=== PATIENT | female | born 1955 | race Two or more races ===

== ENCOUNTER 2016-07-30 14:53 | Emergency (ER) | payer MEDICAID ==
[~2016-07-30] VITALS: Ht 160 cm; Wt 56.2 kg
--- NOTE | 2016-07-30 15:38 | Emergency Room Report ---
History of Present Illness General Chief Complaint: Fever Source: Patient Present Illness HPI 60-year-old female presents to emergency Department complaining of intermittent productive cough, fever, chills, body aches, increased lethargy x2 days in addition to lower her abdominal pressure and frequency. Patient denies hematuria or dysuria. denies abdominal pain, constipation, diarrhea. Patient denies history of immunocompromise or other medical problems. Patient denies ill contacts or recent travel. She also reports nasal congestion and rhinorrhea. She denies taking flu vaccine. Denies CP, Palpitations, LOC, AMS, dizziness, Changes in Vision, Sensation, paresthesias, or a sudden severe headache. Allergies: Coded Allergies: No Known Allergies (Unverified , 06/06/15) Patient History Past Medical History: see triage record Past Surgical History: none Pertinent Family History: none Now: No Reviewed Nursing Documentation: PMH: Agreed, PSxH: Agreed Nursing Documentation-PM Past Medical History: No History, Except For Hx Hypertension: Yes Review of Systems All Other Systems: negative except mentioned in HPI Physical Exam Vital Signs Date Time Temp Pulse Resp B/P Pulse Ox O2 Delivery O2 Flow Rate FiO2 07/30/16 15:07 102.7 89 18 119/68 96 Room Air Sp02 EP Interpretation: reviewed, normal, abnormal - febrile at 102.7 General Appearance: no apparent distress, alert, GCS 15, non-toxic Head: normocephalic, atraumatic Eyes: bilateral eye PERRL, bilateral eye normal inspection ENT: hearing grossly normal, normal pharynx, no angioedema, normal voice Neck: full range of motion, supple/symm/no masses Respiratory: chest non-tender, lungs clear, normal breath sounds, no respiratory distress, no accessory muscle use, no wheezing, speaking full sentences Cardiovascular #1: regular rate, rhythm, no edema Gastrointestinal: normal bowel sounds, non tender, soft, no guarding, no rebound Rectal: deferred Genitourinary: normal inspection, no CVA tenderness Musculoskeletal: back normal, gait/station normal, normal range of motion, non- tender, no calf tenderness Neurologic: alert, oriented x3, responsive, motor strength/tone normal, sensory intact, speech normal Psychiatric: judgement/insight normal, memory normal, mood/affect normal, no suicidal/homicidal ideation Skin: normal color, no rash, warm/dry, well hydrated Lymphatic: no adenopathy Medical Decision Making PA Attestation Dr. Joy is my supervising Physician whom patient management has been discussed with. Diagnostic Impression: Primary Impression: Upper respiratory infection, viral Additional Impression: Viral syndrome ER Course 60-year-old female presents to emergency Department complaining of intermittent productive cough, fever, chills, body aches, increased lethargy x2 days in addition to lower her abdominal pressure and frequency. Patient denies hematuria or dysuria. Patient denies history of immunocompromise or other medical problems. Patient denies ill contacts or recent travel. She also reports nasal congestion and rhinorrhea. She denies taking flu vaccine. Denies CP, Palpitations, LOC, AMS, dizziness, Changes in Vision, Sensation, paresthesias, or a sudden severe headache. Ddx considered but are not limited to URI, pneumonia, PE, strep pharyngitis, meningitis, UTI Vital signs: Pt. is afebrile, the remaining VS are WNL H&PE are most consistent with URI- no meningeal signs, oropharynx is not involved, no evidence of bacterial infection at this time. ORDERS: -UA: WNL no evidence of infection -CXR: No consolidation, effusion, pneumothorax or acute cardiopulmonary findings per soft read in ED by Dr. Joy ED INTERVENTIONS: None required at this time. --PT. EDUCATION: Discussed antibiotic resistance with inappropriate prescribing of antibiotics for viral illnesses. Discussed signs and symptoms to indicate viral illness versus bacterial illness. DISCHARGE: At this time pt. is stable for d/c to home. Will provide printed patient care instructions, and any necessary prescriptions. Care plan and follow up instructions have been discussed with the patient prior to discharge. Labs Test 07/30/16 15:40 Urine Color Pale yellow Urine Appearance Clear Urine pH 6 (4.5-8.0) Urine Specific [place] 1.015 (1.005-1.035) Urine Protein Negative (NEGATIVE) Urine Glucose (UA) Negative (NEGATIVE) Urine Ketones Negative (NEGATIVE) Urine Occult Blood 2+ (NEGATIVE) Urine Nitrite Negative (NEGATIVE) Urine Bilirubin Negative (NEGATIVE) Urine Urobilinogen Normal MG/DL (0.0-1.0) Urine Leukocyte Esterase Negative (NEGATIVE) Urine RBC 2-4 /HPF (0 - 2) Urine WBC 0-2 /HPF (0 - 2) Urine Squamous Epithelial Cells Few /LPF (NONE/OCC) Urine Bacteria Few /HPF (NONE) Last Vital Signs Date Time Temp Pulse Resp B/P Pulse Ox O2 Delivery O2 Flow Rate FiO2 07/30/16 15:07 102.7 89 18 119/68 96 Room Air Disposition: HOME, SELF-CARE Condition: Stable Scripts Pseudoephedrine Hcl* (NEXAFED*) 30 Mg Tablet 30 MG ORAL Q6H Y for congestion, #20 TAB Prov: Denae Montes 07/30/16 Guaifenesin (Guaifenesin) 1,200 Mg Tab.er.12h 1200 MG PO BID, #20 TAB Prov: Denae MontesAMilly 07/30/16 Codeine/Promethazine Hcl* (PROMETHAZINE-CODEINE SYRUP*) 118 Ml Syrup 5 ML ORAL Q6H Y for For Cough, #118 ML 0 Refills Prov: Denae Montes 07/30/16 Acetaminophen* (TYLENOL EXTRA STRENGTH*) 500 Mg Tablet 500 MG ORAL Q6H Y for Mild Pain/Temp > 100.5, #30 TAB 0 Refills Prov: Denae Montes 07/30/16 Patient Instructions: Upper Respiratory Infection, Adult Additional Instructions: Take medications as directed. Follow up with PCP in 3-5 days Return sooner to ED if new symptoms occur, or current symptoms become worse. - Please note that this Emergency Department Report was dictated using [employer] technology software, occasionally this can lead to erroneous entry secondary to interpretation by the dictation equipment. Denae Montes Jul 30, 2016 15:38
[2016-07-30 15:55] LABS: APPEARANCE,URINE CLEAR; KETONES,URINE NEGATIVE (NEGATIVE); LEUKOCYTE ESTERASE ,URINE NEGATIVE (NEGATIVE); NITRITE,URINE NEGATIVE (NEGATIVE); PH,URINE 6 (4.5-8.0); PROTEIN,URINE NEGATIVE (NEGATIVE); UROBILINOGEN,URINE NORMAL MG/DL (0.0-1.0)
[2016-07-30 16:04] LABS: BACTERIA,URINE FEW /HPF; SQUAMOUS EPITHELIAL CELL,UR FEW /LPF (NONE/OCC); WBC,URINE 0-2 /HPF (0 - 2)
[2016-07-30] MEDS ORDERED: TYLENOL EXTRA500 MG ORAL (17:25)
[2016-07-30] MEDS ORDERED: NEXAFED30 MG ORAL (17:25)
[2016-07-30] MEDS ORDERED: PROMETHAZINE-C118 M1 ORAL (17:25)
[2016-07-30] MEDS ORDERED: GUAIFENESIN1200 MG PO (17:25)
[2016-07-30 18:03] VITALS: BP 121/64
--- NOTE | 2016-07-31 13:54 | Diagnostic Imaging Report ---
Indication: Cough Comparison: 06/06/15 A single view chest radiograph was obtained. Findings: Cardiomediastinal appearance is within normal limits for age. Pulmonary vascularity is appropriate. The diaphragmatic contour is smooth and costophrenic angles are sharp. No pleural effusions are identified. The bones are unremarkable. Impression: No acute findings
== END 2016-07-30 18:03 | disposition home or self-care (01) ==
LOC: EMR 15:56
DX: J06.9 Acute upper respiratory infection, unspecified (principal); B34.9 Viral infection, unspecified; I10 Essential (primary) hypertension
CPT/HCPCS: 71010; 81003; 99284

== ENCOUNTER 2017-05-30 13:51 | Emergency (ER) | payer MEDICAID ==
[~2017-05-30] VITALS: Ht 152.4 cm; Wt 57.6 kg
[~2017-05-30 13:51] MED LIST: GUAIFENESIN1200 MG PO; NEXAFED30 MG ORAL; PROMETHAZINE-C118 M1 ORAL; TYLENOL EXTRA500 MG ORAL
[2017-05-30] MEDS ORDERED: NKM (14:18)
[2017-05-30] MEDS ORDERED: BENADRYL25 M3 PO (14:43)
--- NOTE | 2017-05-30 14:47 | Emergency Room Report ---
History of Present Illness General Chief Complaint: Earache Source: Patient Present Illness HPI 61-year-old female, no significant past medical history, presenting with right ear itchiness and swelling. Son states that she ate a cake, about 10-15 minutes later, she felt that her right ear and right-sided face became very itchy swollen. States that it has decreased since coming to the emergency room. No shortness of breath no wheezing. No fever chills no discharge. No complaining of any pain to right ear at this time only slight itchiness Allergies: Coded Allergies: No Known Allergies (Unverified , 06/06/15) Patient History Past Medical History: see triage record Past Surgical History: none Pertinent Family History: none Reviewed Nursing Documentation: PMH: Agreed, PSxH: Agreed Nursing Documentation-PMH Hx Hypertension: Yes Review of Systems All Other Systems: negative except mentioned in HPI Physical Exam Vital Signs Date Time Temp Pulse Resp B/P (MAP) Pulse Ox O2 Delivery O2 Flow Rate FiO2 05/30/17 14:11 98.1 71 17 160/88 98 Room Air Sp02 EP Interpretation: reviewed, normal General Appearance: normal inspection, well appearing, no apparent distress, alert, GCS 15, non-toxic Head: normocephalic, atraumatic Eyes: bilateral eye normal inspection, bilateral eye PERRL, bilateral eye EOMI ENT: TMs + canals normal, other - R pinna with mild redness and edema. no inner ear abnormalities Neck: normal inspection, full range of motion, supple Respiratory: normal inspection, lungs clear, normal breath sounds, no respiratory distress, no retraction, no wheezing, speaking full sentences, chest symmetrical Cardiovascular #1: normal inspection, regular rate, rhythm, no edema, normal capillary refill Cardiovascular #2: 2+ radial (R), 2+ radial (L) Gastrointestinal: normal inspection, non tender, soft, non-distended, no guarding Musculoskeletal: normal inspection, back normal, normal range of motion, non- tender Neurologic: normal inspection, alert, oriented x3, responsive, motor strength/ tone normal, sensory intact, normal gait, speech normal Psychiatric: normal inspection, judgement/insight normal, memory normal Skin: normal inspection, normal color, no rash, warm/dry, well hydrated, normal turgor Medical Decision Making Diagnostic Impression: Primary Impression: Allergic reaction Additional Impression: Ear pain, right ER Course 61-year-old female with right ear redness and itching DDX: Possible Allergic reaction At this time physical exam is unremarkable for the inner ear, not consistent with acute otitis media or otitis externa. Does not appear to be cellulitis either. Plan: Motrin ER course: Patient has remained stable during ED stay. No respiratory symptoms patient appears nontoxic Disposition: Patient is to be discharged to home. Prescriptions given: Benadryl Patient is instructed to follow up with their primary care doctor within 5 days. Strict return precautions discussed with patient such as fever, chills, worsening/severe pain, chest pain, SOB, nausea, vomiting, which may indicate severe illness. Patient verbalizes understanding and agrees with plan. Please note that this Emergency Department Report was dictated using [employer] set[employer] technology software, occasionally this can lead to erroneous entry secondary to interpretation by the dictation equipment Last Vital Signs Date Time Temp Pulse Resp B/P (MAP) Pulse Ox O2 Delivery O2 Flow Rate FiO2 05/30/17 14:11 98.1 71 17 160/88 98 Room Air Disposition: HOME, SELF-CARE Condition: Improved Scripts Diphenhydramine HCl (Benadryl) 25 Mg Capsule 25 MG PO Q6H, #30 CAP 0 Refills Prov: Harry Lund M.D. 05/30/17 Patient Instructions: Earache Additional Instructions: PLEASE SEE YOUR PRIMARY CARE DOCTOR IN 3 DAYS FOR RECHECK PLEASE TAKE BENADRYL FOR ITCHINESS Harry Lund M.D. May 30, 2017 14:47
[2017-05-30 15:14] VITALS: BP 146/85
[2017-05-30 15:32] VITALS: BP 146/85
[2017-05-30] MEDS ORDERED: PREDNISONE20 MG ORAL (17:37)
[2017-05-30] MEDS ORDERED: CORTISPORIN EAR10 ML RIGHT EAR (17:37)
[2017-05-30] MEDS ORDERED: IBUPROFEN600 MG ORAL (17:37)
== END 2017-05-30 15:32 | disposition home or self-care (01) ==
LOC: EMR 15:15
DX: T78.40XA Allergy, unspecified, initial encounter (principal); X58.XXXA Exposure to other specified factors, initial encounter; H92.01 Otalgia, right ear; I10 Essential (primary) hypertension
CPT/HCPCS: 99283

== ENCOUNTER 2017-05-30 16:36 | Emergency (ER) | payer MEDICAID ==
[~2017-05-30] VITALS: Ht 154.9 cm; Wt 57.6 kg
[~2017-05-30 16:36] MED LIST changes: +BENADRYL25 M3 PO; +NKM
[2017-05-30] MEDS ORDERED: Dexamethasone 4mg/ml vial IM ONE (17:30)
[2017-05-30] MEDS ORDERED: PREDNISONE20 MG ORAL (17:37)
[2017-05-30] MEDS ORDERED: IBUPROFEN600 MG ORAL (17:37)
[2017-05-30] MEDS ORDERED: CORTISPORIN EAR10 ML RIGHT EAR (17:37)
[2017-05-30 17:50] VITALS: BP 139/75
--- NOTE | 2017-05-30 20:36 | Emergency Room Report ---
History of Present Illness General Chief Complaint: General Complaint Source: Patient Present Illness [facility] The patient is a 61-year-old female presenting for possible allergic reaction. She was just seen in this emergency department less than one hour ago for the same complaint. She states that she was eating an apple and noticed swelling to the right side of her face. She is also having itching from her ear. She is having pain described as 8/10 dull ache to the area. Worse with chewing and touch. She was given a prescription for Benadryl which she did not fill yet. She denies any known allergies She denies any other symptoms including nausea, vomiting, fever, chills, dizziness, cough Allergies: Coded Allergies: No Known Allergies (Unverified , 06/06/15) Patient History Past Medical History: see triage record Pertinent Family History: none Last Menstrual Period: Post Reviewed Nursing Documentation: PMH: Agreed, PSxH: Agreed Nursing Documentation-PMH Hx Hypertension: Yes Review of Systems All Other Systems: negative except mentioned in HPI Physical Exam Vital Signs Date Time Temp Pulse Resp B/P (MAP) Pulse Ox O2 Delivery O2 Flow Rate FiO2 05/30/17 16:55 98.1 72 17 159/79 98 Room Air Sp02 EP Interpretation: reviewed, normal General Appearance: no apparent distress, alert, GCS 15, non-toxic Head: normocephalic, atraumatic Eyes: bilateral eye normal inspection, bilateral eye PERRL ENT: hearing grossly normal, normal pharynx, no angioedema, normal voice, uvula midline, nasal congestion, other - R EAC erythema and TTP Neck: full range of motion, supple/symm/no masses Respiratory: chest non-tender, lungs clear, normal breath sounds, speaking full sentences Musculoskeletal: back normal, gait/station normal, normal range of motion, non- tender Neurologic: alert, oriented x3, responsive, motor strength/tone normal, sensory intact, speech normal Psychiatric: judgement/insight normal, memory normal, mood/affect normal, no suicidal/homicidal ideation Skin: normal color, no rash, other - R Side facial swelling inferior to ear. Non tender. Medical Decision Making PA Attestation Dr. Lund is my supervising physician. Patient management was discussed with my supervising physician Diagnostic Impression: Primary Impression: Otitis externa Qualified Codes: H60.501 - Unspecified acute noninfective otitis externa, right ear Additional Impression: Allergic reaction Qualified Codes: T78.40XA - Allergy, unspecified, initial encounter ER Course The patient is a 61-year-old female presenting for possible allergic reaction and R ear pain Physical exam: Vitals within normal limits. No apparent distress. HEENT: R ear external auditory canal is erythematous and edematous. White discharge is noted. Tympanic membrane is intact. No bulging. There is mild edema inferior to the right ear. Nontender. No mass. No discoloration There is no cervical lymphadenopathy. Otherwise exam is unremarkable The patient will be discharged home with a prescription for Cortisporin, prednisone, and has prescription for benadryl. ER precautions given Last Vital Signs Date Time Temp Pulse Resp B/P (MAP) Pulse Ox O2 Delivery O2 Flow Rate FiO2 05/30/17 17:50 97.5 74 17 139/75 97 Room Air Status: improved Disposition: HOME, SELF-CARE Condition: Improved Scripts Neomycin/Polymyxin B Sulf/Hc* (CORTISPORIN EAR SOLUTION*) 10 Ml Solution 4 DROP RIGHT EAR QID, #10 ML 0 Refills Prov: ANTHONY WOODS P.A. 05/30/17 Prednisone* (PREDNISONE*) 20 Mg Tablet 20 MG ORAL DAILY, #5 TAB 0 Refills Prov: TERZIANANTHONY P.A. 05/30/17 Ibuprofen* (MOTRIN*) 600 Mg Tablet 600 MG ORAL Q8H Y for For Pain, #30 TAB 0 Refills Prov: KANAANANTHONY P.A. 05/30/17 Additional Instructions: I discussed my findings with the patient. All questions and concerns have been answered. Treatment and medication compliance have been addressed. I advised the patient that they need to follow up with PMD in 3-5 days. Return to ED if symptoms worsen, new symptoms arise, or if needed for any reason. Patient verbalized understanding of discharge instructions. Return to the emergency department if you experience other symptoms including shortness of breath, difficulty swallowing, or for any other reason ANTHONY WOODS May 30, 2017 20:36
== END 2017-05-30 17:53 | disposition home or self-care (01) ==
LOC: EMR 16:50
DX: H60.91 Unspecified otitis externa, right ear (principal); T78.40XA Allergy, unspecified, initial encounter; X58.XXXA Exposure to other specified factors, initial encounter
CPT/HCPCS: 96372; 99283; J1100